=== PATIENT | male | born 1955 | race African-American/Black ===

== ENCOUNTER 2016-11-21 20:43 | Emergency (ER) | payer OTHER ==
[~2016-11-21] VITALS: Ht 182.8 cm; Wt 102.1 kg
[~2016-11-21 20:43] MED LIST: BACTRIM DS 8001 TA1 PO; CEPHALEXIN500 M1 PO; CIPROFLOXACIN500 MG PO; CLEOCIN150 MG PO; CLINDAMYCIN HC300 MG PO; DAYPRO600 M1 PO; HYDROCODONE BIT1 T11 PO; INDOCIN25 MG PO; KEFLEX500 MG PO; KENALOG0.1% TP; LIPITOR10 MG PO; LISINOPRIL/HCTZ1 TA2 PO; LYRICA25 MG PO; LYRICA75 M1 PO; MOTRIN800 MG PO; NEURONTIN300 MG PO; NORVASC10 MG PO; OPANA ER20 MG PO; OPANA ER40 MG PO; OXYCODONE30 MG PO; OXYCONTIN20 M1 PO; OXYCONTIN80 MG PO; ROBAXIN750 MG PO; VIBRAMYCIN100 MG PO; WATER PILL
[2016-11-21 20:50] VITALS: BP 153/81
[2016-11-21] MEDS ORDERED: AMLODIPINE BESY10 MG PO (20:51)
[2016-11-21] MEDS ORDERED: OXYCODONE HCL10 M1 PO (20:51)
[2016-11-21 21:40] LABS: BASO % 0.5 % (0.0-1.0); EOS # 0.2 10*3/uL (0.0-0.4); EOS % 2.1 % (1.0-4.0); HEMATOCRIT 38.8 % (42.0-52.0); HEMOGLOBIN 12.3 g/dl (14.0-18.0); LYMPH # 2.6 10*3/uL (1.3-4.4); LYMPH % 34.9 % (27.0-41.0); MEAN CELL VOLUME 74.2 fl (80.0-94.0); MEAN CORPUSCULAR HGB 23.5 pg (27.0-31.0); MEAN CORPUSCULAR HGB CONC 31.7 g/dl (33.0-37.0); MEAN PLATELET VOLUME 8.6 fl (9.6-12.3); MONO # 0.9 10*3/uL (0.1-1.0); NEUT # 3.7 10*3/uL (2.3-7.9); NEUT % 50.2 % (47.0-73.0); PLATELET COUNT AUTOMATED 271 10*3/uL (130-400); RED BLOOD COUNT 5.23 10*6/uL (4.50-5.90); RED CELL DISTRI WIDTH 15.6 % (0-14.5); WHITE BLOOD COUNT 7.5 10*3/uL (4.8-10.8)
[2016-11-21 21:55] LABS: ALBUMIN 3.3 gm/dl (3.1-4.5); ALKALINE PHOSPHATASE 167 U/L (45-117); BUN 6 mg/dl (7-24); CHLORIDE 101 mmol/L (98-107); CREATININE 0.99 mg/dL (0.70-1.30); POTASSIUM 3.3 mmol/L (3.5-5.1); SGOT/AST 28 IU/L (3-35); SGPT/ALT 20 U/L (12-78); SODIUM 139 mmol/L (136-145); TOTAL PROTEIN 8.2 gm/dL (6.4-8.2)
[2016-11-21 22:04] LABS: BILIRUBIN NEGATIVE (NEGATIVE); BLOOD NEGATIVE (NEGATIVE); CLARITY CLEAR (CLEAR); COLOR YELLOW (YELLOW); GLUCOSE NEGATIVE (NEGATIVE); KETONE NEGATIVE (NEGATIVE); LEUKO ESTERASE NEGATIVE (NEGATIVE); NITRITE NEGATIVE (NEGATIVE); UROBILINOGEN 0.2 E.U./dl (0.2-1.0)
[2016-11-21 22:13] LABS: WBC 0-2 wbc/hpf (0-5)
== END 2016-11-22 | disposition home or self-care (01) ==
LOC: ED 20:43
PROVIDERS: Nurse Practitioner Family
DX: K57.90 Diverticulosis of intestine, part unspecified, without perforation or abscess without bleeding (principal); F17.200 Nicotine dependence, unspecified, uncomplicated; Z88.2 Allergy status to sulfonamides

== ENCOUNTER 2017-07-07 19:49 | Emergency (ER) | payer OTHER ==
[~2017-07-07] VITALS: Ht 182.8 cm; Wt 106.6 kg
[~2017-07-07 19:49] MED LIST changes: +AMLODIPINE BESY10 MG PO; +OXYCODONE HCL10 M1 PO
[2017-07-07 19:52] VITALS: BP 136/87
[2017-07-07] MEDS ORDERED: PENICILLIN VK500 MG PO (19:55)
[2017-07-07] MEDS ORDERED: NAPROSYN500 MG PO (19:55)
[2017-07-07] MEDS ORDERED: ZOFRAN4 MG PO (19:55)
[2017-07-07] MEDS ORDERED: Peridex 473 ML473 ML PO (19:55)
== END 2017-07-07 20:01 | disposition home or self-care (01) ==
LOC: ED 19:49
DX: K08.89 Other specified disorders of teeth and supporting structures (principal); R03.0 Elevated blood-pressure reading, without diagnosis of hypertension; F17.200 Nicotine dependence, unspecified, uncomplicated; Z79.899 Other long term (current) drug therapy; Z88.2 Allergy status to sulfonamides

== ENCOUNTER → 2018-01-14 | Outpatient (CLI) | payer OTHER ==
[~2018-01-14] MED LIST changes: +NAPROSYN500 MG PO; +PENICILLIN VK500 MG PO; +Peridex 473 ML473 ML PO; +ZOFRAN4 MG PO
== END | disposition home or self-care (01) ==
LOC: LAB 14:50
DX: M87.851 Other osteonecrosis, right femur (principal); Z96.641 Presence of right artificial hip joint

== ENCOUNTER 2018-03-31 23:04 | Emergency (ER) | payer OTHER ==
[~2018-03-31] VITALS: Ht 182.8 cm; Wt 111.1 kg
[~2018-03-31 23:04] MED LIST changes: +LISINOPRIL-HCT1 EACH PO; -LISINOPRIL/HCTZ1 TA2 PO
[2018-03-31 23:06] VITALS: BP 130/79
[2018-03-31 23:52] LABS: BASO # 0.1 10*3/uL (0.0-0.1); BASO % 0.8 % (0.0-1.0); EOS # 0.4 10*3/uL (0.0-0.4); EOS % 4.2 % (1.0-4.0); HEMATOCRIT 39.6 % (42.0-52.0); HEMOGLOBIN 12.7 g/dl (14.0-18.0); LYMPH # 2.8 10*3/uL (1.3-4.4); LYMPH % 32.7 % (27.0-41.0); MEAN CELL VOLUME 75.9 fl (80.0-94.0); MEAN CORPUSCULAR HGB 24.3 pg (27.0-31.0); MEAN CORPUSCULAR HGB CONC 32.1 g/dl (33.0-37.0); MEAN PLATELET VOLUME 8.4 fl (9.6-12.3); MONO % 11.4 % (3.0-9.0); NEUT # 4.4 10*3/uL (2.3-7.9); NEUT % 50.7 % (47.0-73.0); PLATELET COUNT AUTOMATED 318 10*3/uL (130-400); RED BLOOD COUNT 5.22 10*6/uL (4.50-5.90); WHITE BLOOD COUNT 8.6 10*3/uL (4.8-10.8)
[2018-04-01] LABS: ACT PARTIAL THROMBO TIME 26.1 SECONDS (20.8-31.5)
[2018-04-01 00:15] LABS: ALBUMIN 3.2 gm/dl (3.1-4.5); ALKALINE PHOSPHATASE 154 U/L (45-117); BUN 7 mg/dl (7-24); CHLORIDE 98 mmol/L (98-107); LIPASE 146 U/L (73-393); POTASSIUM 2.9 mmol/L (3.5-5.1); SGOT/AST 21 IU/L (3-35); SGPT/ALT 21 U/L (12-78); SODIUM 136 mmol/L (136-145); TOTAL PROTEIN 8.5 gm/dL (6.4-8.2)
[2018-04-01] MEDS ORDERED: ZOFRAN4 MG PO (01:02)
[2018-04-01] MEDS ORDERED: K-TAB10 MEQ PO (01:02)
[2018-04-18] MEDS ORDERED: OXYCONTIN10 M1 PO (00:32)
[2018-04-18] MEDS ORDERED: NUCYNTA ER100 M1 PO (00:59)
[2018-04-18] MEDS ORDERED: LYRICA100 M1 PO (00:59)
[2018-04-18] MEDS ORDERED: ZOFRAN4 MG PO (01:00)
[2018-04-18] MEDS ORDERED: TAMSULOSIN HCL0.4 MG PO (01:01)
[2018-04-18] MEDS ORDERED: LOSARTAN-HCTZ1 EACH PO (01:01)
[2018-04-18] MEDS ORDERED: DOXYCYCLINE100 M3 PO (01:02)
[2018-04-19] MEDS ORDERED: NICOTINE PATCH1 EAC2 TD (18:28)
[2018-04-19] MEDS ORDERED: PREDNISONE10 MG PO (18:28)
[2018-04-19] MEDS ORDERED: AZITHROMYCIN500 M2 PO (18:28)
[2018-08-10] MEDS ORDERED: NAPROSYN500 MG PO (19:08)
== END 2018-04-01 01:34 | disposition home or self-care (01) ==
LOC: ED 23:04
PROVIDERS: Physician Assistant
DX: R10.31 Right lower quadrant pain (principal); R10.11 Right upper quadrant pain; E87.6 Hypokalemia; K57.92 Diverticulitis of intestine, part unspecified, without perforation or abscess without bleeding; Z88.2 Allergy status to sulfonamides; Z79.2 Long term (current) use of antibiotics; Z79.899 Other long term (current) drug therapy

== ENCOUNTER 2019-07-24 22:44 | Emergency (ER) | payer OTHER ==
[~2019-07-24] VITALS: Ht 182.8 cm; Wt 108.9 kg
[~2019-07-24 22:44] MED LIST changes: +AZITHROMYCIN500 M2 PO; +DOXYCYCLINE100 M3 PO; +K-TAB10 MEQ PO; +LOSARTAN-HCTZ1 EACH PO; +LYRICA100 M1 PO; +NICOTINE PATCH1 EAC2 TD; +NUCYNTA ER100 M1 PO; +OXYCONTIN10 M1 PO; +PREDNISONE10 MG PO; +TAMSULOSIN HCL0.4 MG PO
[2019-07-24 22:58] VITALS: BP 139/79
[2019-07-25 00:48] LABS: BASO # 0.1 10*3/uL (0.0-0.1); BASO % 0.6 % (0.0-1.0); EOS # 0.4 10*3/uL (0.0-0.4); HEMATOCRIT 38.6 % (42.0-52.0); LYMPH # 2.7 10*3/uL (1.3-4.4); LYMPH % 33.7 % (27.0-41.0); MEAN CELL VOLUME 74.5 fl (80.0-94.0); MEAN CORPUSCULAR HGB 23.2 pg (27.0-31.0); MEAN CORPUSCULAR HGB CONC 31.1 g/dl (33.0-37.0); MEAN PLATELET VOLUME 8.5 fl (9.6-12.3); MONO # 0.9 10*3/uL (0.1-1.0); MONO % 11.2 % (3.0-9.0); NEUT % 49.3 % (47.0-73.0); PLATELET COUNT AUTOMATED 287 10*3/uL (130-400); RED BLOOD COUNT 5.18 10*6/uL (4.50-5.90); RED CELL DISTRI WIDTH 15.7 % (0-14.5); WHITE BLOOD COUNT 8.1 10*3/uL (4.8-10.8)
[2019-07-25 01:02] LABS: BUN 9 mg/dl (7-24); CHLORIDE 98 mmol/L (98-107); SODIUM 134 mmol/L (136-145)
[2019-07-25] MEDS ORDERED: KLOR-CON 1010 ME1 PO (01:09)
== END 2019-07-25 01:56 | disposition home or self-care (01) ==
LOC: ED 22:44
PROVIDERS: Emergency Medicine
DX: R60.0 Localized edema (principal); E87.6 Hypokalemia; I10 Essential (primary) hypertension; G89.29 Other chronic pain; Z88.2 Allergy status to sulfonamides; Z79.899 Other long term (current) drug therapy; Z87.891 Personal history of nicotine dependence

== ENCOUNTER → 2020-02-10 | Outpatient (CLI) | payer MEDICARE ==
[~2020-02-10] MED LIST changes: +KLOR-CON 1010 ME1 PO
== END | disposition home or self-care (01) ==
LOC: RESCLI 00:32
PROVIDERS: ATTEND Emergency Medicine
DX: H43.391 Other vitreous opacities, right eye (principal); M25.551 Pain in right hip; N40.0 Benign prostatic hyperplasia without lower urinary tract symptoms; I10 Essential (primary) hypertension; E78.5 Hyperlipidemia, unspecified; E11.9 Type 2 diabetes mellitus without complications; Z79.4 Long term (current) use of insulin; Z79.899 Other long term (current) drug therapy; Z88.8 Allergy status to other drugs, medicaments and biological substances

== ENCOUNTER → 2020-02-12 | Outpatient (CLI) | payer MEDICARE ==
[2020-02-12 14:25] LABS: VITAMIN D, 25-HYDROXY 10.3 ng/mL (30-100)
== END | disposition home or self-care (01) ==
LOC: LAB 11:32
PROVIDERS: ATTEND Internal Medicine Nephrology
DX: Z79.899 Other long term (current) drug therapy (principal); D64.9 Anemia, unspecified

== ENCOUNTER 2020-03-24 18:17 | Emergency (ER) | payer OTHER, MEDICARE ==
[~2020-03-24] VITALS: Ht 182.8 cm; Wt 113.4 kg
[2020-03-24 18:39] VITALS: BP 148/85
[2020-03-24 19:06] LABS: BASO % 0.5 % (0.0-1.0); EOS # 0.4 10*3/uL (0.0-0.4); EOS % 5.7 % (1.0-4.0); HEMATOCRIT 38.1 % (42.0-52.0); LYMPH % 31.7 % (27.0-41.0); MEAN CELL VOLUME 73.1 fl (80.0-94.0); MEAN CORPUSCULAR HGB 22.1 pg (27.0-31.0); MEAN CORPUSCULAR HGB CONC 30.2 g/dl (33.0-37.0); MEAN PLATELET VOLUME 8.6 fl (9.6-12.3); MONO # 0.9 10*3/uL (0.1-1.0); MONO % 13.6 % (3.0-9.0); NEUT # 3.1 10*3/uL (2.3-7.9); NEUT % 48.2 % (47.0-73.0); PLATELET COUNT AUTOMATED 289 10*3/uL (130-400); RED BLOOD COUNT 5.21 10*6/uL (4.50-5.90); RED CELL DISTRI WIDTH 16.4 % (0-14.5); WHITE BLOOD COUNT 6.3 10*3/uL (4.8-10.8)
[2020-03-24 19:21] LABS: ALBUMIN 3.5 gm/dl (3.1-4.5); ALKALINE PHOSPHATASE 168 U/L (45-117); BUN 7 mg/dl (7-24); CHLORIDE 103 mmol/L (98-107); CREATININE 0.94 mg/dL (0.70-1.30); LIPASE 124 U/L (73-393); POTASSIUM 3.1 mmol/L (3.5-5.1); SGOT/AST 31 IU/L (3-35); SGPT/ALT 30 U/L (12-78); SODIUM 141 mmol/L (136-145); TOTAL PROTEIN 8.4 gm/dL (6.4-8.2)
[2020-03-24 19:47] LABS: BILIRUBIN Negative (Negative); BLOOD Negative (Negative); CLARITY Clear (Clear); COLOR Yellow (Yellow); GLUCOSE Negative (Negative); KETONE Negative (Negative); LEUKO ESTERASE Negative (Negative); NITRITE Negative (Negative); UROBILINOGEN 0.2 E.U./dl (0.0-1.0)
[2020-03-24 19:55] LABS: BACTERIA TRACE; EPITHELIAL CELLS 0-2; RBC 0-2 rbc/hpf (0-2)
[2020-03-24] MEDS ORDERED: K-TAB20 MEQ PO (21:31)
== END 2020-03-24 21:14 | disposition home or self-care (01) ==
LOC: ED 18:17
PROVIDERS: Physician Assistant
DX: R52 Pain, unspecified (principal); R11.0 Nausea; R19.7 Diarrhea, unspecified; Z88.2 Allergy status to sulfonamides; Z79.899 Other long term (current) drug therapy; Z98.890 Other specified postprocedural states; Z96.641 Presence of right artificial hip joint

== ENCOUNTER 2020-06-05 23:23 | Emergency (ER) | payer MEDICARE ==
[~2020-06-05] VITALS: Ht 182.8 cm; Wt 113.4 kg
[~2020-06-05 23:23] MED LIST changes: +K-TAB20 MEQ PO
[2020-06-05 23:38] VITALS: BP 131/87
== END 2020-06-06 01:23 | disposition left against medical advice (07) ==
LOC: ED 23:23
DX: R60.0 Localized edema (principal); M25.562 Pain in left knee; I10 Essential (primary) hypertension; Z88.2 Allergy status to sulfonamides; Z79.899 Other long term (current) drug therapy; E11.9 Type 2 diabetes mellitus without complications; Z90.89 Acquired absence of other organs; Z96.641 Presence of right artificial hip joint; Z98.890 Other specified postprocedural states; F17.200 Nicotine dependence, unspecified, uncomplicated

== ENCOUNTER → 2021-01-07 | Outpatient (CLI) | payer OTHER ==
[~2021-01-07] MED LIST changes: -OXYCONTIN10 M1 PO; +VITAMIN D3125 MCG PO; +XTAMPZA ER18 MG PO
== END | disposition home or self-care (01) ==
LOC: COVID19 14:59
PROVIDERS: ATTEND Internal Medicine
DX: Z11.52 Encounter for screening for COVID-19 (principal)

== ENCOUNTER 2021-03-26 18:30 | Emergency (ER) | payer MEDICARE ==
[~2021-03-26] VITALS: Ht 182.8 cm; Wt 122.5 kg
[2021-03-26 18:36] VITALS: BP 176/93
== END 2021-03-26 21:30 | disposition left against medical advice (07) ==
LOC: ED 18:30
DX: M79.642 Pain in left hand (principal); Z88.2 Allergy status to sulfonamides; Z87.891 Personal history of nicotine dependence

== ENCOUNTER 2021-07-29 20:17 | Emergency (ER) | payer MEDICARE ==
[~2021-07-29] VITALS: Wt 117.9 kg
[2021-07-29 20:30] VITALS: BP 178/111
[2021-07-29 21:12] LABS: BASO # 0.1 10*3/uL (0.0-0.1); BASO % 0.6 % (0.0-1.0); EOS # 0.7 10*3/uL (0.0-0.4); EOS % 7.9 % (1.0-4.0); HEMATOCRIT 40.2 % (42.0-52.0); LYMPH # 1.7 10*3/uL (1.3-4.4); LYMPH % 20.1 % (27.0-41.0); MEAN CELL VOLUME 74.7 fl (80.0-94.0); MEAN CORPUSCULAR HGB 22.5 pg (27.0-31.0); MEAN CORPUSCULAR HGB CONC 30.1 g/dl (33.0-37.0); MEAN PLATELET VOLUME 8.7 fl (9.6-12.3); MONO # 0.9 10*3/uL (0.1-1.0); MONO % 10.9 % (3.0-9.0); NEUT % 60.3 % (47.0-73.0); PLATELET COUNT AUTOMATED 287 10*3/uL (130-400); RED BLOOD COUNT 5.38 10*6/uL (4.50-5.90); RED CELL DISTRI WIDTH 15.1 % (0-14.5); WHITE BLOOD COUNT 8.3 10*3/uL (4.8-10.8)
[2021-07-29 21:35] LABS: ALKALINE PHOSPHATASE 148 U/L (45-117); BUN 6 mg/dl (7-24); CHLORIDE 106 mmol/L (98-107); CREATININE 1.03 mg/dL (0.70-1.30); POTASSIUM 3.6 mmol/L (3.5-5.1); SGOT/AST 20 IU/L (3-35); SGPT/ALT 21 U/L (12-78); SODIUM 140 mmol/L (136-145); TOTAL PROTEIN 8.1 gm/dL (6.4-8.2)
[2021-07-30] MEDS ORDERED: VIBRAMYCIN100 MG PO (00:18)
[2021-07-30] MEDS ORDERED: CLARITIN10 MG PO (00:18)
[2021-07-30] MEDS ORDERED: BENZONATATE100 M1 PO (00:18)
== END 2021-07-30 00:44 | disposition home or self-care (01) ==
LOC: ED 20:17
PROVIDERS: Emergency Medicine
DX: J06.9 Acute upper respiratory infection, unspecified (principal); Z20.822 Contact with and (suspected) exposure to COVID-19; J40 Bronchitis, not specified as acute or chronic; I10 Essential (primary) hypertension; E11.9 Type 2 diabetes mellitus without complications; Z88.2 Allergy status to sulfonamides; Z90.89 Acquired absence of other organs; Z98.890 Other specified postprocedural states; Z87.891 Personal history of nicotine dependence

== ENCOUNTER 2022-02-15 22:21 | Emergency (ER) | payer MEDICARE ==
[~2022-02-15 22:21] MED LIST changes: +BENZONATATE100 M1 PO; +CLARITIN10 MG PO
[2022-02-15 22:29] VITALS: BP 200/100
[2022-02-16] MEDS ORDERED: NAPROSYN500 MG PO (01:22)
== END 2022-02-16 01:25 | disposition home or self-care (01) ==
LOC: ED 22:21
DX: M75.52 Bursitis of left shoulder (principal); Z88.2 Allergy status to sulfonamides; Z98.890 Other specified postprocedural states; Z90.89 Acquired absence of other organs; F10.20 Alcohol dependence, uncomplicated; Z87.891 Personal history of nicotine dependence

== ENCOUNTER → 2022-04-18 | Outpatient (CLI) | payer MEDICARE ==
[~2022-04-18] MED LIST changes: +AMLODIPINE BESYL5 MG PO; +ASPIRIN ADULT L81 M2 PO; +HYDR25T PO; +LIPITOR40 MG PO; +LISINOPRIL10 M1 PO; +LOPRESSOR25 MG PO; +POTASSIUM CHLO10 MEQ PO
[2022-04-18 16:07] LABS: BASO % 0.6 % (0.0-1.0); EOS # 0.5 10*3/uL (0.0-0.4); EOS % 7.6 % (1.0-4.0); HEMATOCRIT 38.5 % (42.0-52.0); LYMPH # 1.8 10*3/uL (1.3-4.4); LYMPH % 26.7 % (27.0-41.0); MEAN CELL VOLUME 75.2 fl (80.0-94.0); MEAN CORPUSCULAR HGB 23.6 pg (27.0-31.0); MEAN CORPUSCULAR HGB CONC 31.4 g/dl (33.0-37.0); MEAN PLATELET VOLUME 8.8 fl (9.6-12.3); MONO % 14.8 % (3.0-9.0); NEUT # 3.3 10*3/uL (2.3-7.9); NEUT % 50.2 % (47.0-73.0); PLATELET COUNT AUTOMATED 257 10*3/uL (130-400); RED BLOOD COUNT 5.12 10*6/uL (4.50-5.90); RED CELL DISTRI WIDTH 14.8 % (0-14.5); WHITE BLOOD COUNT 6.7 10*3/uL (4.8-10.8)
[2022-04-18 16:19] LABS: ACT PARTIAL THROMBO TIME 32.7 SECONDS (20.0-32.1); INTERNATIONAL NORM RATIO 1.1 (2.0-3.5)
[2022-04-18 16:35] LABS: ALKALINE PHOSPHATASE 164 U/L (46-116); BUN 10 mg/dl (9-23); CHLORIDE 102 mmol/L (98-107); POTASSIUM 3.7 mmol/L (3.4-5.1); SGPT/ALT 17 U/L (10-49)
== END | disposition home or self-care (01) ==
LOC: LAB 15:44
PROVIDERS: ATTEND Internal Medicine Cardiovascular Disease
DX: Z01.818 Encounter for other preprocedural examination (principal); R06.02 Shortness of breath

== ENCOUNTER → 2023-03-20 | Outpatient (CLI) | payer MEDICARE | END | disposition home or self-care (01) | LOC: CT 00:51 | PROVIDERS: ATTEND Family Medicine | DX: J44.9 Chronic obstructive pulmonary disease, unspecified (principal); R91.8 Other nonspecific abnormal finding of lung field; I51.7 Cardiomegaly; I25.10 Atherosclerotic heart disease of native coronary artery without angina pectoris; Z87.891 Personal history of nicotine dependence ==

== ENCOUNTER → 2023-07-16 | Outpatient (CLI) | payer MEDICARE | END | disposition home or self-care (01) | LOC: CT 13:00 → RAD 13:33 → CT 13:33 | PROVIDERS: ATTEND Family Medicine | DX: M20.12 Hallux valgus (acquired), left foot (principal); M21.942 Unspecified acquired deformity of hand, left hand ==

== ENCOUNTER → 2023-07-18 | Outpatient (CLI) | payer MEDICARE | END | disposition home or self-care (01) | LOC: CT 00:43 | PROVIDERS: ATTEND Family Medicine | DX: R91.1 Solitary pulmonary nodule (principal); R91.8 Other nonspecific abnormal finding of lung field; I25.10 Atherosclerotic heart disease of native coronary artery without angina pectoris ==